=== PATIENT | male | born 1990 | race African-American/Black ===

== ENCOUNTER 2017-04-10 23:36 | Emergency (ER) | payer BC ==
[~2017-04-10] VITALS: Ht 165.1 cm; Wt 63.6 kg
[2017-04-10 23:38] VITALS: TEMP 99.5
[2017-04-11 01:12] LABS: INFLUENZA B NEGATIVE
[2017-04-11 01:53] VITALS: BP 131/76; PULSE 83
== END 2017-04-11 01:53 | disposition home or self-care (01) ==
LOC: COL.ER 23:36
PROVIDERS: Physician Assistant
DX: J11.1 Influenza due to unidentified influenza virus with other respiratory manifestations (principal)
CPT/HCPCS: J1885